=== PATIENT | female | born 1955 | race Hispanic/Latino ===

== ENCOUNTER 2019-10-15 11:17 | Emergency (ER) | payer OTHER, SELFPAY ==
--- NOTE | 2019-10-15 12:26 | RAD ---
PORTABLE CHEST 1 VIEW: Date: 10/15/2019 Time: 1146 hours HISTORY: Weakness, nausea, vomiting, headache, hyperglycemia. FINDINGS/IMPRESSION: The heart size is normal. The aorta is tortuous. There are peripheral infiltrates in the lungs bilate rally, right greater than left. No pneumothoraces or pleural effusions are seen. Correlation for COVI D-19 is recommended. POS: C
[2019-10-15 12:30] LABS: Hemoglobin 14.8 g/dL (12.0-16.0); Mean Corpuscular HGB CONC 32.7 g/dL (32.0-36.0); Mean Corpuscular Hemoglobin 30.9 pg (27.0-31.0); Mean Corpuscular Volume 94.6 fL (78.0-98.0); Mean Platelet Volume 9.2 fL (7.4-10.4); Platelet Count 321 thou/uL (130-400); RBC Distribution Width 12.4 % (11.5-14.5); Red Blood Cell (RBC) Count 4.78 mill/uL (4.20-5.40); White Blood Cell (WBC) Count 10.6 thou/uL (4.8-10.8)
[2019-10-15 12:48] LABS: ALT (SGPT) 32 U/L (8-55); AST (SGOT) 36 U/L (5-34); Albumin 3.4 g/dL (3.4-4.8); Alkaline Phosphatase 110 U/L (40-110); Anion Gap 18 mmol/L (10-20); BUN (Urea Nitrogen) 35 mg/dL (9.8-20.1); Bilirubin, Total 0.6 mg/dL (0.2-1.2); Calc. Creatinine Clearance 0 mL/min (70-130); Calcium 8.5 mg/dL (7.8-10.44); Carbon Dioxide 21 mmol/L (23-31); Chloride 92 mmol/L (98-107); Estimated GFR-MDRD 53; Globulin 4.2 g/dL (2.4-3.5); Glucose 477 mg/dL (80-115); Potassium 4.1 mmol/L (3.5-5.1); Protein, Total 7.6 g/dL (6.0-8.3); Sodium 127 mmol/L (136-145)
[2019-10-15 12:51] LABS: Band 38 % (5-11); Lymphocytes 6 % (21-51); MDiff Complete? YES; Monocytes 2 % (0-10); Neutrophil 52 % (42-75); Platelet Morphology Comment Appears Adequate; Polychromasia SLIGHT = 2-3 cells (100X) (0-2/hpf); Reactive Lymphocytes 2 % (0-10)
[2019-10-15 12:59] LABS: Bilirubin Negative (Negative); Blood, Urine Negative (Negative); Clarity Clear (Clear); Glucose, Urine (Dipstick) Greater than 1000 mg/dL (Negative); Leukocyte Negative Leu/uL (Negative); Nitrite Negative (Negative); Protein, Urine (Dipstick) Negative (Neg-Trace); Urobilinogen Normal mg/dL (Less than 2)
[2019-10-15] MEDS ORDERED: Azithromycin 250 MG TAB ONE (14:36)
[2019-10-16 11:06] LABS: SARS-CoV-2 MS2 Positive; SARS-CoV-2 N Gene Positive; SARS-CoV-2 S Gene Positive; SARS-CoV-2 orf1ab Positive
== END 2019-10-15 14:50 | disposition home or self-care (01) ==
LOC: ERS 11:17
DX: U07.1 COVID-19 (principal); J12.89 Other viral pneumonia; E11.65 Type 2 diabetes mellitus with hyperglycemia; J18.9 Pneumonia, unspecified organism
CPT/HCPCS: 36416; 71045; 80053; 81003; 82010; 85025; 87635; 96360; 96361; U0003